=== PATIENT | female | born 1965 | race Caucasian/White ===

== ENCOUNTER 2020-09-30 08:21 | Outpatient (CLI) | payer OTHER, SELFPAY ==
--- NOTE | 2020-09-30 08:30 | MR_ITS ---
WS: [id number] MRI LEFT KNEE HISTORY: PAIN IN UNSPECIFIED KNEE COMPARISON: Radiographs 09/30/2020 Anterior cruciate ligament: Intact. Posterior cruciate ligament: Intact. Medial collateral ligament: MCL is displaced from the joint line by an extruded meniscus. There is in creased T2 signal along the medial joint line extending above and below the joint line. Posterior lateral corner structures: Intact. Medial menisci: Significant increased signal within the posterior horn with fraying along the articul ar surfaces. Lateral meniscus: Intact. Normal signal, size and shape. Extensor mechanism: Distal quadriceps tendon and patellar tendons are intact. Fluid and soft tissue: Moderate amount of fluid in the suprapatellar bursa and extending into the kne e joint and along the posterior cruciate ligament. Fluid contains multiple tiny loose bodies and ther e is synovial thickening. No Carlos's cyst. Osseous and articular structures: Patellofemoral compartment: Moderate generalized thinning of the cartilage with a focal 5 mm defect a t the patellar eminence. No underlying marrow edema. Medial compartment: Moderate narrowing of the medial compartment. Generalized loss of cartilage menis rogelio extrusion. Subchondral cystic changes involving the tibial plateau near the tibial spine. Small a mount of marrow edema medial tibial plateau. Lateral compartment: Moderate narrowing of the lateral compartment with osteophytes moderate thinning of the cartilage. No fracture or marrow edema. Well-corticated osseous or calcific nodule noted in the anterior joint space measuring 9.5 mm. This c orresponds to the finding on the recent radiograph. MR/MR knee LT wo con* [id number] IMPRESSION: 1. Well-corticated loose body in the anterior mid joint space measuring 9.5 mm . May be a calcified meniscal fragment, loose osteochondral lesion or calcified cartilage. 2. Moderate joint effusion with synovial thickening and inflammation. 3. Moderate tricompartment osteoarthritis with generalized loss of cartilage m ost significant at the patellofemoral joint space and medial joint space. 4. Extruded medial meniscus causing displacement of the MCL. Both the anterior and posterior horns of the medial meniscus demonstrates fraying and irregulari ty. Suspect tear in the posterior horn.
--- NOTE | 2020-09-30 08:30 | XR_ITS ---
WS: [id number] LEFT KNEE: 2 VIEW(S) TECHNIQUE: AP and lateral. HISTORY: PAIN IN UNSPECIFIED KNEE COMPARISON: None available. No fracture or dislocation. Well-corticated ovoid osseous density measuring 8.8 mm projecting between the tibial spines and in th e anterior joint space. Mild narrowing of the joint spaces, greatest involving the medial compartment with marginal osteophytes. Moderate-sized suprapatellar joint effusion. No soft tissue abnormality. XR/XR knee LT 1-2V [id number] IMPRESSION: 1. Mild tricompartment osteoarthritis. 2. 8.8 mm ovoid osseous possible loose body in the anterior mid knee joint. 3. Suprapatellar effusion, moderate.
== END 2020-09-30 08:22 | disposition home or self-care (01) ==
PROVIDERS: Visit Provider Nurse Practitioner
DX: M25.562 Pain in left knee (principal); M17.12 Unilateral primary osteoarthritis, left knee; M25.462 Effusion, left knee
CPT/HCPCS: 73560; 73721

== ENCOUNTER → 2020-10-23 08:29 | Outpatient (BNVA) | payer OTHER, SELFPAY | PROVIDERS: Referring Provider Nurse Practitioner; Visit Provider Specialist | DX: M25.562 Pain in left knee (principal) | CPT/HCPCS: 73560; 73565 ==